=== PATIENT | male | born 1985 | race African-American/Black ===

== ENCOUNTER 2021-03-11 01:18 | Emergency (ER) | payer SELFPAY ==
[~2021-03-11] VITALS: Ht 175.3 cm; Wt 77.0 kg
[2021-03-11 01:19] VITALS: BP 132/88
== END 2021-03-11 02:30 | disposition left against medical advice (07) ==
LOC: ER 01:18
DX: Z53.21 Procedure and treatment not carried out due to patient leaving prior to being seen by health care provider (principal)

== ENCOUNTER 2021-09-19 14:38 | Emergency (ER) | payer SELFPAY ==
[~2021-09-19] VITALS: Ht 172.7 cm; Wt 81.0 kg
[2021-09-19] MEDS ORDERED: IBUPROFEN 600MG TABLET PO ONE (15:00)
[2021-09-19] MEDS ORDERED: NAPR-1176 MT (15:40)
[2021-09-19 16:16] VITALS: BP 113/64
== END 2021-09-19 16:16 | disposition home or self-care (01) ==
LOC: ER 14:38
DX: M25.561 Pain in right knee (principal); X50.0XXA Overexertion from strenuous movement or load, initial encounter; Y93.89 Activity, other specified; Y92.9 Unspecified place or not applicable
CPT/HCPCS: 73562; 99283

== ENCOUNTER 2022-07-30 05:51 | Emergency (ER) | payer MEDICAID, OTHER ==
[~2022-07-30] VITALS: Ht 175.3 cm; Wt 80.1 kg
[~2022-07-30 05:51] MED LIST: NAPR-1176 MT
[2022-07-30 05:56] VITALS: BP 150/86
[2022-07-30] MEDS ORDERED: ACETAMINOPHEN 325MG TABLET PO ONE (06:15)
[2022-07-30] MEDS ORDERED: IBUP-2030 PO (06:52)
== END 2022-07-30 07:18 | disposition home or self-care (01) ==
LOC: ER 05:51
DX: M79.89 Other specified soft tissue disorders (principal)
CPT/HCPCS: 73630; 99283